=== PATIENT | male | born 1960 | race Caucasian/White ===

== ENCOUNTER 2020-06-14 16:16 | Emergency (ER) | payer BC, OTHER ==
[~2020-06-14] VITALS: Ht 177.8 cm; Wt 115.6 kg
[2020-06-14] MEDS ORDERED: AVAL300T14 PO (16:26)
[2020-06-14 17:16] LABS: BASO # 0.1 10^3/uL (0.0-0.2); BASO % 0.7 % (0.0-1.0); EOS # 0.2 10^3/uL (0.0-0.5); HEMATOCRIT 41.4 % (42.0-52.0); LYMPH # 2.8 10^3/uL (1.5-5.0); LYMPH % 34.6 % (24.0-44.0); MEAN CORPUSCULAR HEMOGLOBIN 30.4 pg (27.0-33.0); MEAN CORPUSCULAR HGB CONC 33.8 g/dl (32.0-36.5); MONO # 0.7 10^3/uL (0.0-0.8); MONO % 8.2 % (0.0-5.0); NEUTROPHILS # 4.4 10^3/uL (1.5-8.5); NEUTROPHILS % 54.3 % (36.0-66.0); PLATELET COUNT, AUTOMATED 194 10^3/uL (150-450); WHITE BLOOD COUNT 8.1 10^3/uL (4.0-10.0)
[2020-06-14 17:37] LABS: ALBUMIN 3.7 GM/DL (3.2-5.2); ALT/SGPT 35 U/L (12-78); BILIRUBIN,DIRECT 0.1 MG/DL (0.0-0.2); BILIRUBIN,TOTAL 0.4 MG/DL (0.2-1.0); BLOOD UREA NITROGEN 17 MG/DL (7-18); CALCIUM LEVEL 9.1 MG/DL (8.8-10.2); CARBON DIOXIDE LEVEL 28 MEQ/L (21-32); CHLORIDE LEVEL 107 MEQ/L (98-107); CREATININE FOR GFR 0.99 MG/DL (0.70-1.30); GLOMERULAR FILTRATION RATE > 60.0 (>49); GLUCOSE, FASTING 137 MG/DL (70-100); LIPASE 159 U/L (73-393); POTASSIUM SERUM 4.1 MEQ/L (3.5-5.1); SODIUM LEVEL 140 MEQ/L (136-145); TOTAL PROTEIN 7.2 GM/DL (6.4-8.2)
[2020-06-14] MEDS ORDERED: NS 1,000 ML IV ONE (18:15)
--- NOTE | 2020-06-14 18:30 | REPVR ---
PROCEDURE INFORMATION: Exam: CT Abdomen And Pelvis Without Contrast Exam date and time: 06/14/2020 6:10 PM Age: 60 years old Clinical indication: Abdominal pain; Flank; Right; Additional info: R flank pain, HX constipation TECHNIQUE: Imaging protocol: Computed tomography of the abdomen and pelvis without contrast. Radiation optimization: All CT scans at this facility use at least one of these dose optimization techniques: automated exposure control; mA and/or kV adjustment per patient size (includes targeted exams where dose is matched to clinical indication); or iterative reconstruction. COMPARISON: No relevant prior studies available. FINDINGS: Lungs: No suspicious mass or airspace process in the visualized lung bases. Liver: Liver is diffusely enlarged. Gallbladder and bile ducts: Gallbladder is present and shows no evidence of gallstone. Pancreas: Noncontrast pancreas shows no obvious mass or adjacent fluid. Spleen: Noncontrast spleen shows no obvious focal deformity. Adrenals: Adrenal glands are normal in appearance. Kidneys and ureters: Kidneys show no stone or hydronephrosis. Stomach and bowel: No evidence of small bowel obstruction. No evidence of acute diverticulitis. Appendix: Appendix is not seen. No RLQ inflammation to suggest appendicitis. Intraperitoneal space: No pneumoperitoneum. Vasculature: Atherosclerotic change present in the aorta, without aneurysm. Lymph nodes: No enlarged lymph nodes. Small, nonspecific mesenteric lymph nodes are present. No abnormal pelvic sidewall lymph nodes. Bladder: Urinary bladder appears normal. Reproductive: Prostate is enlarged measuring 8 x 8 cm cross-sectional, indenting the bladder base. Bones/joints: Degenerative disc and facet arthropathy in the lower lumbar spine. Laminectomy change left L5. Degenerative changes in the hips bilaterally. No destructive osseous abnormality. Soft tissues: No concerning focal abnormality of the extra-abdominal and pelvic soft tissues. Other findings: Limited evaluation without enteric or IV contrast. IMPRESSION: 1. No evidence of renal stone or obstruction. No explanation for right flank pain. 2. Nonvisualization of the appendix but without concerning right lower quadrant findings. Appendicitis is felt to be unlikely 3. Diffuse hepatomegaly measuring 23 cm long axis Electronically signed by: Darin Lopez On 06/14/2020 18:30:05 PM
[2020-06-14 19:38] VITALS: BP 149/76
== END 2020-06-14 19:37 | disposition home or self-care (01) ==
LOC: M ED 16:16
DX: R10.84 Generalized abdominal pain (principal); I10 Essential (primary) hypertension; Z91.041 Radiographic dye allergy status

== ENCOUNTER → 2021-04-13 | Outpatient (CLI) | payer SELFPAY ==
[~2021-04-13] MED LIST: AVAL300T14 PO
== END ==
LOC: M LABSMTC 09:43
PROVIDERS: ATTEND Pediatrics
DX: Z11.52 Encounter for screening for COVID-19 (principal)

== ENCOUNTER 2024-08-07 12:12 | Emergency (ER) | payer BC ==
[~2024-08-07] VITALS: Ht 177.8 cm; Wt 115.9 kg
[2024-08-07 12:16] VITALS: TEMP 97.9
[2024-08-07 12:43] LABS: BASO % 0.3 % (0.0-1.0); EOS % 0.2 % (0.0-3.0); HEMATOCRIT 47.5 % (42.0-52.0); LYMPH # 1.8 10^3/uL (1.5-5.0); LYMPH % 13.6 % (24.0-44.0); MEAN CORPUSCULAR HEMOGLOBIN 30.1 pg (27.0-33.0); MEAN CORPUSCULAR HGB CONC 33.7 g/dl (32.0-36.5); MEAN CORPUSCULAR VOLUME 89.3 fl (80.0-96.0); MONO # 0.8 10^3/uL (0.0-0.8); MONO % 6.1 % (2.0-8.0); NEUTROPHILS # 10.2 10^3/uL (1.5-8.5); NEUTROPHILS % 78.9 % (36.0-66.0); PLATELET COUNT, AUTOMATED 250 10^3/uL (150-450); RED BLOOD COUNT 5.32 10^6/uL (4.30-6.10); WHITE BLOOD COUNT 12.9 10^3/uL (4.0-10.0)
[2024-08-07 12:56] LABS: INR 0.92; PROTHROMBIN TIME 12.7 SECONDS (12.5-14.5)
[2024-08-07] MEDS ORDERED: MORPHINE 2 MG/ML 1ML VIAL IV PRN (13:00)
[2024-08-07] MEDS ORDERED: ONDANSETRON 4MG 2ML VIAL IV ONE (13:00)
[2024-08-07] MEDS ORDERED: NS 500 ML IV ONE (13:00)
[2024-08-07 13:01] LABS: LIPASE 56 U/L (12-53)
[2024-08-07 13:04] LABS: ALBUMIN 4.4 G/DL (3.2-5.2); ALKALINE PHOSPHATASE 71 U/L (40-129); ALT/SGPT 65 U/L (7.0-40); AST/SGOT 36 U/L (<34); BILIRUBIN,DIRECT 0.3 MG/DL (<0.4); BILIRUBIN,TOTAL 0.8 MG/DL (0.3-1.2); BLOOD UREA NITROGEN 23 MG/DL (9-23); CALCIUM LEVEL 10.9 MG/DL (8.3-10.6); CARBON DIOXIDE LEVEL 27 MMOL/L (20-31); CHLORIDE LEVEL 106 MMOL/L (98-107); CREATININE FOR GFR 1.27 MG/DL (0.70-1.30); GLOMERULAR FILTRATION RATE > 60.0 (>49); GLUCOSE, FASTING 147 MG/DL (74-106); POTASSIUM SERUM 4.3 MMOL/L (3.5-5.1); SODIUM LEVEL 138 MMOL/L (136-145); TOTAL PROTEIN 8.2 G/DL (5.7-8.2)
[2024-08-07 13:05] LABS: CK-MB VALUE MASS 2.3 NG/ML (<3.6)
[2024-08-07 13:08] LABS: THYROID STIMULATING HORMONE 0.811 uIU/ML (0.55-4.78)
[2024-08-07 13:09] LABS: CPK CREATINE PHOSPHOKINASE 204 U/L (46-171); FREE T4 1.28 NG/DL (0.89-1.76); MB/CK RELATIVE INDEX 1.12 (< OR =4)
[2024-08-07 13:24] LABS: D-DIMER QUANT < 0.27 ug/mL (<0.5)
[2024-08-07 13:47] VITALS: BP 132/71; O2SAT 94
[2024-08-07 14:19] LABS: CK-MB VALUE MASS 2.1 NG/ML (<3.6)
[2024-08-07 14:32] LABS: MB/CK RELATIVE INDEX 1.13 (< OR =4)
[2024-08-07 16:40] LABS: PSA SCREENING 15.34 NG/ML (< 4.00)
== END 2024-08-07 15:47 | disposition left against medical advice (07) ==
LOC: M ED 12:12
DX: R07.9 Chest pain, unspecified (principal); R51.9 Headache, unspecified; R91.1 Solitary pulmonary nodule; I25.2 Old myocardial infarction; R00.0 Tachycardia, unspecified; E11.9 Type 2 diabetes mellitus without complications; I10 Essential (primary) hypertension; Z91.041 Radiographic dye allergy status; Z79.899 Other long term (current) drug therapy; Z53.9 Procedure and treatment not carried out, unspecified reason
CPT/HCPCS: 36415; 70450; 71045; 71250; 76705; 80048; 80076; 82330; 82550; 82553; 83690; 84439; 84443; 84484; 85025; 85379; 85610; 93005; 93041; 94760; 99285; G0103